=== PATIENT | female | born 1945 | race Caucasian/White ===

== ENCOUNTER → 2018-10-07 | Outpatient (CLI) | payer MEDICARE ==
--- NOTE | 2018-10-07 14:13 | MY ---
Diagnostic Digital Rt CLINICAL HISTORY: Right breast nodule COMPARISON: Current and past mammograms TECHNIQUE: Craniocaudal and mediolateral oblique spot compression views of both breasts were obtained with a direct medial lateral using low dose, digital soft tissue technique.Images were reviewed with a radiologist prior to completion. Computer-Aided Detection System was utilized. FINDINGS: Nodular density seen on the recent mammogram essentially involutes with spot compression. And has an appearance more similar to older mammograms. Impression: Tiny nodular density diminishes with spot compression Recommendation: Right breast ultrasound BI-RADS 0: Incomplete. Needs additional imaging evaluation needed. .
--- NOTE | 2018-10-07 14:22 | US ---
Breast Limited Rt CLINICAL HISTORY: Right breast nodule FINDINGS: At the central 9:00 region right breast approximately 4 cm from the nipple is a slightly irregular shaped 5 x 6 x 3 mm nodule. There is slight irregularity. There is a nodular focus in the more superficial wall. This does not contain flow. At 10:00 proximally 5 cm from the nipple is a 4 x 3 x 2 mm simple cyst. No solid nodules are identified. There is no architectural distortion. IMPRESSION: Complex cyst at the central 9:00 region right breast approximate 4 cm in the nipple. This is likely benign. Recommendation: Short-term follow-up right breast ultrasound in 4-6 months BI-RADS 3: Probably benign. Short term Followup interval suggested
== END ==
LOC: JP.MAM 12:38
PROVIDERS: ATTEND Nurse Practitioner Family
DX: R92.8 Other abnormal and inconclusive findings on diagnostic imaging of breast (principal); N63.10 Unspecified lump in the right breast, unspecified quadrant
CPT/HCPCS: 76642-26-RT; 76642-RT; 77065-26-RT; 77065-RT

== ENCOUNTER 2024-11-29 12:06 | Emergency (ER) | payer MEDICARE ==
[2024-11-29 12:16] VITALS: PULSE 107
[2024-11-29] MEDS: Albuterol/Ipratropium 3.0-0.5 MG/3 ML Neb Soln NEB ONE (13:08)
[2024-11-29 14:00] VITALS: BP 136/72
== END 2024-11-29 13:59 | disposition home or self-care (01) ==
LOC: JP.ED 12:06
DX: J44.1 Chronic obstructive pulmonary disease with (acute) exacerbation (principal); E11.9 Type 2 diabetes mellitus without complications; Z90.49 Acquired absence of other specified parts of digestive tract; Z90.710 Acquired absence of both cervix and uterus; Z79.899 Other long term (current) drug therapy; Z79.82 Long term (current) use of aspirin; Z88.2 Allergy status to sulfonamides; Z88.8 Allergy status to other drugs, medicaments and biological substances; Z88.5 Allergy status to narcotic agent
CPT/HCPCS: 94640; 99284; A9270